=== PATIENT | male | born 1995 | race African-American/Black ===

== ENCOUNTER 2025-04-05 14:55 | Emergency (ER) | payer BC, SELFPAY ==
[2025-04-05 16:48] LABS: Cocaine Metabolite Screen Negative (Negative); THC/Cannabinoid Screen PRELIM POSITIVE (Negative); Tricyclic Screen Negative (Negative)
== END 2025-04-05 17:46 | disposition home or self-care (01) ==
LOC: CSHERS 14:55
DX: J01.90 Acute sinusitis, unspecified (principal); R51.9 Headache, unspecified
CPT/HCPCS: 36416; 70450; 80306